=== PATIENT | male | born 1970 | race Caucasian/White ===

== ENCOUNTER 2025-09-08 17:10 | Emergency (ER) | payer SELFPAY ==
[~2025-09-08] VITALS: Ht 170.2 cm; Wt 95.5 kg
[2025-09-08 17:16] VITALS: TEMP 97.9
[2025-09-08] MEDS: LIDOCAINE 1%/EPI 1:200,000/PF 10 ML VIAL SQ ONE (20:34)
[2025-09-08] MEDS: BACITRACIN 28 GM OINTMENT TP ONE (20:35)
[2025-09-08] MEDS: ACETAMINOPHEN 500 MG TABLET PO ONE (20:36)
[2025-09-08] MEDS: PERTUSS(ACELL),DIPH,TET/PF 0.5 ML SYRINGE [ADULT] IM. ONE (20:40)
[2025-09-08] MEDS: LIDOCAINE 1% 10 ML VIAL SQ ONE (20:41)
[2025-09-08 22:05] VITALS: BP 145/86; PULSE 73; RESP 18; O2SAT 99
== END 2025-09-08 22:25 | disposition home or self-care (01) ==
LOC: EMS 17:10
DX: S61.212A Laceration without foreign body of right middle finger without damage to nail, initial encounter (principal); W45.8XXA Other foreign body or object entering through skin, initial encounter; Y93.89 Activity, other specified; Y92.89 Other specified places as the place of occurrence of the external cause; Y99.8 Other external cause status
CPT/HCPCS: 99283; 90715; 90471; 12002; J3490 ×2